=== PATIENT | female | born 1975 | race Caucasian/White ===

== ENCOUNTER 2023-10-30 07:39 | Outpatient (CLI) | payer OTHER ==
[~2023-10-30 07:39] MED LIST: GILTUSS TR TAB1 EACH PO; OSEL75CA PO
== END 2023-10-30 08:18 | disposition home or self-care (01) ==
LOC: TOM 07:39
PROVIDERS: ATTEND Family Medicine
DX: G45.8 Other transient cerebral ischemic attacks and related syndromes (principal)